=== PATIENT | female | born 1980 | race Two or more races ===

== ENCOUNTER 2021-12-04 02:05 | Emergency (ER) | payer OTHER ==
[~2021-12-04] VITALS: Ht 172.7 cm; Wt 70.9 kg
[2021-12-04 02:16] VITALS: BP 122/81
== END 2021-12-04 02:41 | disposition left against medical advice (07) ==
LOC: EDSEX 02:05 → EDBD 02:05 → M ED 02:05
DX: Z53.21 Procedure and treatment not carried out due to patient leaving prior to being seen by health care provider (principal)

== ENCOUNTER 2022-03-15 11:03 | Emergency (ER) | payer OTHER ==
[~2022-03-15] VITALS: Ht 172.7 cm; Wt 152.0 kg
[2022-03-15] MEDS ORDERED: NS 1,000 ML IV ONE (11:45)
[2022-03-15 12:05] LABS: HEMATOCRIT 42.4 % (36.0-47.0); HEMOGLOBIN 13.8 g/dl (12.0-15.5); MEAN CORPUSCULAR HEMOGLOBIN 26.5 pg (27.0-33.0); MEAN CORPUSCULAR HGB CONC 32.5 g/dl (32.0-36.5); MEAN CORPUSCULAR VOLUME 81.5 fl (80.0-96.0); PLATELET COUNT, AUTOMATED 262 10^3/uL (150-450); WHITE BLOOD COUNT 5.5 10^3/uL (4.0-10.0)
[2022-03-15 12:14] LABS: URINE PREG TEST NEGATIVE (NEGATIVE)
[2022-03-15 12:25] LABS: AMPHETAMINES LEVEL URINE NEGATIVE (NEGATIVE)
[2022-03-15 12:26] LABS: BARBITURATES URINE NEGATIVE (NEGATIVE); BENZODIAZEPINES URINE NEGATIVE (NEGATIVE); COCAINE METABOLITE URINE NEGATIVE (NEGATIVE); METHADONE URINE NEGATIVE (NEGATIVE); OPIATES URINE NEGATIVE (NEGATIVE); PHENCYCLIDINE URINE NEGATIVE (NEGATIVE)
[2022-03-15 12:27] LABS: MAGNESIUM LEVEL 1.8 MG/DL (1.8-2.4)
[2022-03-15 12:28] LABS: CANNABINOIDS URINE POSITIVE (NEGATIVE)
[2022-03-15 12:36] LABS: ALBUMIN 3.7 G/DL (3.2-5.2); ALKALINE PHOSPHATASE 70 U/L (46-116); ALT/SGPT 22 U/L (7.0-40); AST/SGOT 36 U/L (<34); BILIRUBIN,TOTAL 0.3 MG/DL (0.3-1.2); BLOOD UREA NITROGEN < 5 MG/DL (9-23); CALCIUM LEVEL 8.5 MG/DL (8.5-10.1); CARBON DIOXIDE LEVEL 23 MMOL/L (20-31); CHLORIDE LEVEL 109 MMOL/L (98-107); GLOMERULAR FILTRATION RATE > 60.0 (>58); GLUCOSE, FASTING 84 MG/DL (60-100); POTASSIUM SERUM 3.5 MMOL/L (3.5-5.1); SODIUM LEVEL 139 MMOL/L (136-145); TOTAL PROTEIN 7.1 G/DL (5.7-8.2)
[2022-03-15] MEDS ORDERED: ACETAMINOPHEN 500 MG TAB PO ONE (14:15)
[2022-03-15 14:23] VITALS: BP 133/71
== END 2022-03-15 14:23 | disposition home or self-care (01) ==
LOC: M ED 11:03 → EDBD 11:03 → M ED 14:23
DX: M79.604 Pain in right leg (principal); M79.605 Pain in left leg; J45.909 Unspecified asthma, uncomplicated; F41.9 Anxiety disorder, unspecified; F32.A Depression, unspecified; M54.50 Low back pain, unspecified; F17.200 Nicotine dependence, unspecified, uncomplicated; Z88.0 Allergy status to penicillin; Z88.1 Allergy status to other antibiotic agents; Z91.040 Latex allergy status

== ENCOUNTER 2022-05-13 03:53 | Emergency (ER) | payer OTHER ==
[2022-05-13 04:05] VITALS: BP 105/71
[2022-05-13] MEDS ORDERED: CYCL5TAB PO (04:08)
== END 2022-05-13 07:41 | disposition left against medical advice (07) ==
LOC: M ED 03:53 → EDBD 03:53 → M ED 07:41
DX: Z53.21 Procedure and treatment not carried out due to patient leaving prior to being seen by health care provider (principal)

== ENCOUNTER 2022-10-08 16:06 | Emergency (ER) | payer OTHER ==
[~2022-10-08] VITALS: Ht 172.7 cm; Wt 70.9 kg
[~2022-10-08 16:06] MED LIST: CYCL5TAB PO
[2022-10-08] MEDS ORDERED: NS 1,000 ML IV ONE ×2 (17:10→20:10)
[2022-10-08] MEDS ORDERED: CYCLOBENZAPRINE 10MG TABLET PO ONE (17:10)
[2022-10-08 17:41] LABS: HEMATOCRIT 39.3 % (36.0-47.0); HEMOGLOBIN 12.7 g/dl (12.0-15.5); MEAN CORPUSCULAR HGB CONC 32.3 g/dl (32.0-36.5); MEAN CORPUSCULAR VOLUME 80.4 fl (80.0-96.0); PLATELET COUNT, AUTOMATED 330 10^3/uL (150-450); RED BLOOD COUNT 4.89 10^6/uL (4.00-5.40); WHITE BLOOD COUNT 8.2 10^3/uL (4.0-10.0)
[2022-10-08 18:01] LABS: ALBUMIN 3.9 G/DL (3.2-5.2); ALKALINE PHOSPHATASE 70 U/L (46-116); ALT/SGPT 25 U/L (7.0-40); AST/SGOT 22 U/L (<34); BILIRUBIN,TOTAL 0.6 MG/DL (0.3-1.2); BLOOD UREA NITROGEN 12 MG/DL (9-23); CALCIUM LEVEL 8.2 MG/DL (8.5-10.1); CARBON DIOXIDE LEVEL 20 MMOL/L (20-31); CHLORIDE LEVEL 109 MMOL/L (98-107); CREATININE FOR GFR 0.88 MG/DL (0.55-1.30); FERRITIN 1275.3 NG/ML (7.3-270.7); GLOMERULAR FILTRATION RATE > 60.0 (>58); GLUCOSE, FASTING 82 MG/DL (60-100); IRON (FE) 68 UG/DL (50-170); MAGNESIUM LEVEL 2.2 MG/DL (1.8-2.4); PERCENT SATURATION 19.4 % (13.2-45.0); POTASSIUM SERUM 4.4 MMOL/L (3.5-5.1); SODIUM LEVEL 136 MMOL/L (136-145); TOTAL IRON BINDING CAPACITY 351 UG/DL (250-425); TOTAL PROTEIN 7.5 G/DL (5.7-8.2)
[2022-10-08 18:02] LABS: VITAMIN B12 LEVEL 442 PG/ML (211-911)
[2022-10-08 18:11] LABS: FOLATE 17.5 NG/ML (>5.4)
[2022-10-08 21:18] LABS: ERYTHROCYTE SEDIMENTATION RATE 50 mm/hr (0-20)
[2022-10-08 21:29] LABS: THYROID STIMULATING HORMONE 2.108 uIU/ML (0.55-4.78)
[2022-10-08 21:49] LABS: CPK CREATINE PHOSPHOKINASE 243 U/L (34-145)
[2022-10-08 22:08] VITALS: BP 124/78; TEMP 97; O2SAT 98
== END 2022-10-08 22:09 | disposition home or self-care (01) ==
LOC: M ED 16:06
DX: T45.4X5A Adverse effect of iron and its compounds, initial encounter (principal); J45.909 Unspecified asthma, uncomplicated; F41.9 Anxiety disorder, unspecified; F32.A Depression, unspecified; D50.9 Iron deficiency anemia, unspecified; Z87.19 Personal history of other diseases of the digestive system; Z88.6 Allergy status to analgesic agent; Z88.0 Allergy status to penicillin; Z88.8 Allergy status to other drugs, medicaments and biological substances; Z91.040 Latex allergy status
CPT/HCPCS: 80053; 82550; 82607; 82728; 82746; 83550; 83735; 84443; 84702; 85027; 85652; 86140; 87635; 96361; 96374; 99284; J1100